=== PATIENT | male | born 1980 | race Caucasian/White ===

== ENCOUNTER 2022-12-20 11:27 | Emergency (ER) | payer SELFPAY ==
[~2022-12-20] VITALS: Ht 167.6 cm; Wt 69.9 kg
[2022-12-20 11:30] VITALS: BP 167/97
[2022-12-20] MEDS ORDERED: DICYCLOMINE HCL LIQUID 20 MG, ALUMINUM HYD/MAG/SIMETHICONE 30 ML, LIDOCAINE VISCOUS 2% ... PO ONE ×3 (11:45)
[2022-12-20] MEDS ORDERED: ALUMINUM HYD/MAG/SIMETHICONE 30 ML UDC ONE (11:56)
[2022-12-20] MEDS ORDERED: DICYCLOMINE HCL LIQUID 10 MG/5 ML UDC ONE (11:56)
[2022-12-20 12:09] LABS: BASOPHILS # (AUTO) 0.1 K/uL (0.00-0.22); BASOPHILS % (AUTO) 0.7 % (0.0-2.0); EOSINOPHILS # (AUTO) 0.3 K/uL (0-0.4); EOSINOPHILS % (AUTO) 2.7 % (0.0-4.0); HEMATOCRIT 44.6 % (36-52); HEMOGLOBIN 15.1 g/dL (12.0-18.0); LYMPHOCYTES # (AUTO) 3.6 K/uL (2.0-11.5); LYMPHOCYTES % (AUTO) 33.7 % (20.5-51.1); MEAN CORPUSCULAR HEMOGLOBIN 32 pg (27-31); MEAN CORPUSCULAR HGB CONC 34 g/dL (33-37); MEAN CORPUSCULAR VOLUME 95.4 fL (80-94); MONOCYTES # (AUTO) 0.8 K/uL (0.8-1.0); MONOCYTES % (AUTO) 7.5 % (1.7-9.3); NEUTROPHILS # (AUTO) 5.9 K/uL (1.8-7.7); NEUTROPHILS % (AUTO) 55.4 % (42.2-75.2); PLATELET COUNT (AUTO) 359 K/uL (140-450); RED BLOOD CELL COUNT(AUTO) 4.67 MIL/uL (4.20-6.10); RED CELL DISTRIBUTION WIDTH 13.3 % (11.6-13.7); WHITE BLOOD COUNT (AUTO) 10.6 K/uL (4.8-10.8)
--- NOTE | 2022-12-20 12:16 | NUR ---
42 Y/O MALE BIB C/O CHEST PAIN X2 WEEKS RADIATING TO THE BACK. DENIES ANY INCREASE IN PAIN, HAS BEEN TAKING MOTRIN/ALLIEVE FOR THE PAIN. STATES THAT HE DRANK ALCOHOL TODAY, DOES NOT SPECIFY HOW MUCH. DENIES ANY ABD PAIN, SOB, NV. VERBALLY RESPONSIVE, WARM TO TOUCH ALLERGY: PCN PMH: DENIES
[2022-12-20 12:28] LABS: PROTHROMBIN TIME 9.5 secs (10.8-13.4)
[2022-12-20 12:39] LABS: ALBUMIN 4.6 g/dL (3.4-5.0); ANION GAP 16.1 (8-16); ASPARTATE AMINOTRANSFERASE 39 U/L (15-37); CARBON DIOXIDE 26.9 mmol/L (21-32); CHLORIDE 100 mmol/L (98-107); GFR ARICAN-AMERICAN 105 mL/min (>90); GLUCOSE 119 mg/dL (74-106); SODIUM SERUM 139 mmol/L (136-145); TOTAL BILIRUBIN 0.4 mg/dL (0.0-1.0); UREA NITROGEN, BLOOD 11 mg/dL (7-18)
[2022-12-20 13:08] LABS: D-DIMER < 100 ng/ml (0-400)
[2022-12-20 13:10] LABS: BARBITURATE, URINE NEGATIVE ng/ml (NEG <=200); BENZODIAZEPINE, URINE NEGATIVE ng/mL (NEG <=200)
[2022-12-20 13:11] LABS: CANNABINOID, URINE POSITIVE ng/mL (NEG <=50); COCAINE, URINE NEGATIVE ng/mL (NEG <=300); OPIATE, URINE NEGATIVE ng/mL (NEG <=2000); PHENCYCLIDINE SCREEN,URINE NEGATIVE ng/mL (NEG <=25)
[2022-12-20] MEDS ORDERED: ACET-10509 PO (13:35)
[2022-12-20] MEDS ORDERED: CYCL-711 PO (13:35)
[2022-12-20] MEDS ORDERED: LID5T TP (13:35)
--- NOTE | 2022-12-20 13:59 | NUR ---
Patient discharged with v/s stable. Written and verbal after care instructions ABOUT LOW BACK STRAIN given and explained. Patient alert, oriented and verbalized understanding of instructions. Ambulatory with steady gait. All questions addressed prior to discharge. ID band removed. Patient advised to follow up with PMD. Rx of TYLENOL EXTRA STRENGTH, FLEXERIL AND LIDODERM PATCH given. Patient educated on indication of medication including possible reaction and side effects. Opportunity to ask questions provided and answered.
== END 2022-12-20 13:59 | disposition home or self-care (01) ==
LOC: MED 11:27
DX: R07.89 Other chest pain (principal); M54.50 Low back pain, unspecified; F17.210 Nicotine dependence, cigarettes, uncomplicated; Z88.0 Allergy status to penicillin; Z72.89 Other problems related to lifestyle
CPT/HCPCS: 36415; 71045; 80053; 80305; 84484; 85025; 85379; 85610; 85730; 93005; 99285; G0482